=== PATIENT | female | born 1955 | race Two or more races ===

== ENCOUNTER 2018-04-25 12:31 | Outpatient (CLI) | payer OTHER | END 2018-04-25 12:43 | disposition home or self-care (01) | LOC: LAB 12:31 | DX: J11.1 Influenza due to unidentified influenza virus with other respiratory manifestations (principal); J20.0 Acute bronchitis due to Mycoplasma pneumoniae ==

== ENCOUNTER → 2019-11-14 10:06 | Outpatient (CLI) | payer OTHER ==
[~2019-11-14 10:06] MED LIST: CARDIZEM120 MG PO; LISINOPRIL20 MG PO
== END | disposition home or self-care (01) ==
LOC: LAB 10:06 → CERTIFICAD 10:06 → EDBD 10:06
PROVIDERS: ATTEND Family Medicine
DX: Z11.1 Encounter for screening for respiratory tuberculosis (principal)

== ENCOUNTER 2020-01-02 10:08 | Emergency (ER) | payer OTHER ==
[~2020-01-02] VITALS: Ht 149.9 cm; Wt 73.5 kg
[2020-01-02] MEDS ORDERED: LISINOPRIL20 MG PO (10:23)
[2020-01-02] MEDS ORDERED: CARDIZEM120 MG PO (10:24)
== END 2020-01-02 12:36 | disposition home or self-care (01) ==
LOC: ER 10:08
DX: M54.5 Low back pain (principal)

== ENCOUNTER 2020-02-26 10:38 | Outpatient (CLI) | payer OTHER | END 2020-02-26 10:47 | disposition home or self-care (01) | LOC: RAD 10:38 | PROVIDERS: ATTEND Orthopaedic Surgery | DX: M76.52 Patellar tendinitis, left knee (principal); M76.51 Patellar tendinitis, right knee; M25.462 Effusion, left knee; M25.461 Effusion, right knee ==